=== PATIENT | female | born 1945 | race Caucasian/White ===

== ENCOUNTER → 2018-02-11 | Outpatient (CLI) | payer MEDICARE, OTHER ==
--- NOTE | 2018-02-11 15:14 | RAD ---
Left knee, 3 views, 02/11/2018: HISTORY: Chronic knee pain There is slight narrowing of the medial compartment of the left knee joint. No fracture or dislocation is identified. There is only minimal posterior patellar spurring. There is a suggestion of a small knee joint effusion. IMPRESSION: 1. Mild degenerative change. 2. Small knee joint effusion Electronically signed by: Kamran Mcwilliams MD (02/11/2018 3:11 PM) [facility]
== END | disposition home or self-care (01) ==
LOC: DXRAD 13:13
PROVIDERS: ATTEND Orthopaedic Surgery Sports Medicine
DX: M17.12 Unilateral primary osteoarthritis, left knee (principal); M25.462 Effusion, left knee
CPT/HCPCS: 73562